=== PATIENT | male | born 1950 | race African-American/Black ===

== ENCOUNTER 2022-07-25 23:16 | Emergency (ER) | payer OTHER ==
[~2022-07-25] VITALS: Ht 182.9 cm; Wt 90.7 kg
[2022-07-25] MEDS ORDERED: predniSONE 20 MG TABLET ONE (23:57)
[2022-07-25] MEDS ORDERED: diphenhydrAMINE HCL 50 MG CAPSULE ONE (23:57)
[2022-07-25] MEDS ORDERED: FAMOTIDINE (20 MG) 20 MG TABLET ONE (23:58)
[2022-07-26] MEDS ORDERED: FAMOTIDINE (20 MG) 20 MG TABLET PO ONE
[2022-07-26] MEDS ORDERED: predniSONE 50 MG TABLET PO ONE
[2022-07-26] MEDS ORDERED: diphenhydrAMINE HCL 25 MG CAPSULE PO ONE
[2022-07-26] MEDS ORDERED: PRED20TA PO (02:26)
[2022-07-26] MEDS ORDERED: EPIN0.3P3 IM (02:26)
[2022-07-26] MEDS ORDERED: DIPH25CA83 PO (02:26)
[2022-07-26 02:38] VITALS: BP 140/86
--- NOTE | 2022-07-26 02:38 | NUR ---
Patient discharged to home in stable condition. Written and verbal after care instructions given. Patient verbalizes understanding of instruction.
== END 2022-07-26 02:39 | disposition home or self-care (01) ==
LOC: ER 23:33
DX: K13.0 Diseases of lips (principal); R22.1 Localized swelling, mass and lump, neck; Z60.2 Problems related to living alone; Z79.899 Other long term (current) drug therapy
CPT/HCPCS: 99284; Q0163; J7512